=== PATIENT | female | born 2000 | race Caucasian/White ===

== ENCOUNTER 2025-07-26 14:47 | Emergency (ER) | payer BC ==
[~2025-07-26] VITALS: Ht 167.6 cm; Wt 68.5 kg
[2025-07-26 15:08] VITALS: TEMP 98.6
[2025-07-26 15:54] LABS: PREGNANCY TEST URINE QUAL NEGATIVE (NEGATIVE)
[2025-07-26 15:56] LABS: PLATELET COUNT (AUTO) 302 K/uL (150-450); RED BLOOD CELL COUNT(AUTO) 3.77 MIL/uL (4.0-5.2); RED CELL DISTRIBUTION WIDTH 13.0 % (11.5-15.0); WHITE BLOOD COUNT (AUTO) 5.9 K/uL (4.3-11.0)
[2025-07-26 16:03] LABS: CALCIUM, SERUM 9.1 mg/dL (8.5-10.1); CREATININE 0.7 mg/dL (0.6-1.3); SODIUM SERUM 140.0 mmol/L (136-145); UREA NITROGEN, BLOOD 11.0 mg/dL (7-18)
[2025-07-26] MEDS ORDERED: IV NS 0.9% 250 ML IV ONE (16:43)
[2025-07-26] MEDS ORDERED: IOHEXOL-350 100 ML VIAL IV ONE (16:43)
[2025-07-26] MEDS ORDERED: POLY15DR31 LEFTEYE (18:46)
[2025-07-26] MEDS ORDERED: PRED50TA PO (18:46)
[2025-07-26] MEDS ORDERED: VALA10002 PO (18:46)
[2025-07-26 19:30] VITALS: BP 121/72; O2SAT 98
== END 2025-07-26 19:54 | disposition home or self-care (01) ==
LOC: ER 14:47
DX: G51.0 Bell's palsy (principal); F41.9 Anxiety disorder, unspecified; M79.7 Fibromyalgia
CPT/HCPCS: 99285; 70498; 70496; 85025; 80048; 84703; 36415; J7050; Q9967